=== PATIENT | male | born 1975 | race Caucasian/White ===

== ENCOUNTER 2023-01-04 15:59 | Emergency (ER) | payer BC, OTHER ==
[~2023-01-04] VITALS: Ht 182.9 cm; Wt 95.3 kg
[2023-01-04 16:20] VITALS: BP_SYST 150
== END 2023-01-04 16:30 | disposition left against medical advice (07) ==
LOC: SED 15:59
DX: G89.18 Other acute postprocedural pain (principal); Z79.899 Other long term (current) drug therapy
CPT/HCPCS: 99281